=== PATIENT | female | born 1970 | race Caucasian/White ===

== ENCOUNTER 2024-03-18 12:19 | Emergency (ER) | payer OTHER ==
[2024-03-18 12:36] VITALS: BP 104/55; PULSE 88; RESP 16; TEMP 98.1; BMI 22.6
[2024-03-18] MEDS ORDERED: IBUPROFEN 600 MG TABLET (FP) PO ONE (13:40)
[2024-03-18] MEDS ORDERED: ACETAMINOPHEN 500 MG TABLET (FP) ONE (13:41)
[2024-03-18] MEDS: ACETAMINOPHEN 500 MG TABLET (FP) PO ONE (13:43)
[2024-03-18] MEDS: IBUPROFEN 600 MG TABLET (FP) PO ONE (13:43)
== END 2024-03-18 13:50 | disposition home or self-care (01) ==
LOC: JERFT 12:19
DX: S60.811A Abrasion of right wrist, initial encounter (principal); W22.8XXA Striking against or struck by other objects, initial encounter
CPT/HCPCS: 73130-TC-RT-FY; 99283-25